=== PATIENT | female | born 1955 | race Caucasian/White ===

== ENCOUNTER 2017-04-19 10:18 | Inpatient (IN) | payer MEDICARE, OTHER ==
[~2017-04-19] VITALS: Ht 157.5 cm; Wt 82.0 kg
[2017-04-19] MEDS ORDERED: normal saline 1000ML IV soln IV ONE (11:25)
[2017-04-19] MEDS ORDERED: vancomycin/NS 1 GM ADD-VANTAGE 250 ML IV ONE (11:25)
[2017-04-19] MEDS ORDERED: piperacillin/tazo 3.375gm/50ml 50 ML IV ONE (11:25)
[2017-04-19 12:14] LABS: ALANINE AMINOTRANSFERASE 24 U/L (12-78); ALBUMIN 3.1 G/DL (3.4-5.0); ALBUMIN/GLOBULIN RATIO 0.7 (1.1-1.5); ALKALINE PHOSPHATASE 105 IU/L (46-116); ANION GAP 5 (8-16); ASPARTATE AMINO TRANSFERASE 15 U/L (10-37); BILIRUBIN,TOTAL 0.4 MG/DL (0.1-1.0); BLOOD UREA NITROGEN 11 MG/DL (7-18); BUN/CREATININE RATIO 13.8 (6.6-38.0); CALCIUM 9.1 MG/DL (8.5-10.1); CHLORIDE 101 MMOL/L (99-107); GLUCOSE 134 MG/DL (70-104); MAGNESIUM 1.7 MG/DL (1.5-2.4); POTASSIUM 3.2 MMOL/L (3.5-5.1); SODIUM 139 MMOL/L (135-145); TOTAL CARBON DIOXIDE 33.2 MMOL/L (24-32); TOTAL PROTEIN 7.5 G/DL (6.4-8.2); eGFR 73 ML/MIN
[2017-04-19 12:24] LABS: D-DIMER 1.07 MG/L FEU (0-0.50); PARTIAL THROMBOPLASTIN TIME 23 SECONDS (22-32); PROTHROMBIN TIME 10.2 SECONDS (9.0-12.0)
[2017-04-19 12:49] LABS: BASOPHILS % (AUTO) 0.2 % (0-1); EOSINOPHILS # (AUTO) 0.2 X10'3 (0-0.9); EOSINOPHILS % (AUTO) 3.1 % (0-6); HEMATOCRIT 41.9 % (35.0-45.0); HEMOGLOBIN 13.7 g/dl (12.0-16.0); LYMPHOCYTES # (AUTO) 0.6 X10'3 (1.1-4.8); LYMPHOCYTES % (AUTO) 8.7 % (21-51); MEAN CORPUSCULAR HEMOGLOBIN 29.3 PG (27.0-31.0); MEAN CORPUSCULAR HGB CONC 32.8 % (33.0-36.5); MEAN CORPUSCULAR VOLUME 89.3 FL (78-98); MEAN PLATELET VOLUME 9.6 FL (7.4-10.4); MONOCYTES # (AUTO) 1.2 X10'3 (0-0.9); NEUTROPHILS # (AUTO) 5.3 X10'3 (1.8-7.7); PLATELET COUNT 184 X10'3 (140-440); RED BLOOD COUNT 4.69 X10'6 (4.20-5.60); RED CELL DISTRIBUTION WIDTH 14.7 % (11.5-14.5); WHITE BLOOD COUNT 7.4 X10'3 (4.5-11.0)
[2017-04-19] MEDS ORDERED: LYR75C PO (13:19)
[2017-04-19] MEDS ORDERED: DONE10TA44 PO (13:19)
[2017-04-19] MEDS ORDERED: VORT5TAB PO (13:19)
[2017-04-19] MEDS ORDERED: FURO40TA4 PO (13:19)
[2017-04-19] MEDS ORDERED: OLAN10TA21 PO (13:19)
[2017-04-19] MEDS ORDERED: LEVO50TA8 PO (13:19)
[2017-04-19] MEDS ORDERED: VENL75CA61 PO (13:19)
[2017-04-19] MEDS ORDERED: BACL20TA PO (13:19)
[2017-04-19] MEDS ORDERED: VENL150C58 PO (13:19)
[2017-04-19] MEDS ORDERED: ondansetron/PF 4mg/2ml inj IV PRN (13:20)
[2017-04-19] MEDS ORDERED: magnesium Cl slow-release 64mg tablet PO PRN (13:20)
[2017-04-19] MEDS ORDERED: mag hydrox/Alum hydrox/simeth 30ml oral suspension PO PRN (13:20)
[2017-04-19] MEDS ORDERED: acetaminophen 325mg tablet PO PRN (13:20)
[2017-04-19] MEDS ORDERED: potassium Cl 40MEQ/NS 500ml 500 ML IV PRN ×2 (13:20)
[2017-04-19] MEDS ORDERED: potassium Cl 20 mEq SR tablet PO PRN (13:20)
[2017-04-19] MEDS ORDERED: bisacodyl 10mg suppository rectal RC PRN (13:20)
[2017-04-19] MEDS ORDERED: magnesium 4gm in 100ml NS 100 ML IV PRN (13:20)
[2017-04-19] MEDS ORDERED: magnesium 2GM in 50ml NS 50 ML IV PRN (13:20)
[2017-04-19] MEDS ORDERED: HYDROcodone/acetaminophen 5mg/325mg tablet PO PRN (13:20)
[2017-04-19] MEDS ORDERED: magnesium hydroxide 30ml (MOM) UD suspension PO PRN (13:20)
[2017-04-19 15:20] VITALS: BP 113/60
[2017-04-19 16:27] VITALS: BP 113/69
[2017-04-19] MEDS: levoFLOXACIN-Levaquin 500mg/D5 100 ML IV SCH (17:13)
[2017-04-19] MEDS: HYDROcodone/acetaminophen 10/325mg tab PO PRN (17:20)
[2017-04-19] MEDS: potassium Cl 20mEq in NS 1,000 ML IV SCH ×2 (17:39→23:17)
[2017-04-19 17:57] LABS: HEMOGLOBIN A1C 5.6 % (4.5-6.2)
[2017-04-19 18:00] VITALS: BP 109/53
[2017-04-19] MEDS: potassium Cl 20 mEq SR tablet PO PRN ×2 (19:05→23:04)
[2017-04-19] MEDS ORDERED: vancomycin/NS 1 GM ADD-VANTAGE 250 ML IV SCH (20:00)
[2017-04-19] MEDS ORDERED: non-formulary drug (Baclofen 1 TAB) PO SCH (20:00)
[2017-04-19] MEDS ORDERED: non-formulary drug (Olanzapine 1 TAB) PO SCH (21:00)
[2017-04-19] MEDS: TECFIDERA 240 MG PO SCH (21:00)
[2017-04-19] MEDS: baclofen 10mg tablet PO SCH (21:04)
[2017-04-19] MEDS ORDERED: donepezil 5mg tablet PO ONE (21:20)
[2017-04-19] MEDS: olanzapine 10mg tablet PO SCH (21:20)
[2017-04-19] MEDS: donepezil 5mg tablet PO SCH (21:21)
[2017-04-19] MEDS: docusate sod 100mg capsule PO SCH (21:22)
[2017-04-19 22:00] VITALS: BP 102/67
[2017-04-20] MEDS ORDERED: vancomycin inj 1,250 MG in normal saline 250ml IV soln 250 ML IV SCH (01:00)
[2017-04-20] MEDS: potassium Cl 20mEq in NS 1,000 ML IV SCH ×2 (04:31→17:30)
[2017-04-20 06:00] VITALS: BP 100/53
[2017-04-20 06:34] LABS: BASOPHILS % (AUTO) 0.5 % (0-1); EOSINOPHILS # (AUTO) 0.3 X10'3 (0-0.9); EOSINOPHILS % (AUTO) 4.2 % (0-6); HEMATOCRIT 38.4 % (35.0-45.0); HEMOGLOBIN 12.7 g/dl (12.0-16.0); LYMPHOCYTES # (AUTO) 0.7 X10'3 (1.1-4.8); LYMPHOCYTES % (AUTO) 12.2 % (21-51); MEAN CORPUSCULAR HGB CONC 33.1 % (33.0-36.5); MEAN CORPUSCULAR VOLUME 90.8 FL (78-98); MEAN PLATELET VOLUME 9.9 FL (7.4-10.4); MONOCYTES # (AUTO) 1.1 X10'3 (0-0.9); MONOCYTES % (AUTO) 17.6 % (2-12); NEUTROPHILS % (AUTO) 65.5 % (42-75); PLATELET COUNT 183 X10'3 (140-440); RED BLOOD COUNT 4.23 X10'6 (4.20-5.60); RED CELL DISTRIBUTION WIDTH 14.9 % (11.5-14.5); WHITE BLOOD COUNT 6.1 X10'3 (4.5-11.0)
[2017-04-20 06:43] LABS: ALBUMIN 2.3 G/DL (3.4-5.0); ANION GAP 6 (8-16); BLOOD UREA NITROGEN 6 MG/DL (7-18); BUN/CREATININE RATIO 8.8 (6.6-38.0); CALCIUM 8.2 MG/DL (8.5-10.1); CHLORIDE 110 MMOL/L (99-107); CREATININE 0.68 MG/DL (0.40-0.90); GLUCOSE 83 MG/DL (70-104); MAGNESIUM 1.6 MG/DL (1.5-2.4); POTASSIUM 3.5 MMOL/L (3.5-5.1); SODIUM 143 MMOL/L (135-145); eGFR 88 ML/MIN
[2017-04-20] MEDS: K and/or MAG REPLACEMENT MC SCH (08:00)
[2017-04-20] MEDS ORDERED: voritioxetine HBr 5mg tablet PO SCH (08:00)
[2017-04-20] MEDS ORDERED: non-formulary drug (Levothyroxine Sodium 1 TAB) PO SCH (08:00)
[2017-04-20] MEDS: venlafaxine XR 75mg capsule (Q24H) PO SCH ×2 (08:10→14:58)
[2017-04-20] MEDS: levoTHYROXINE 25mcg tablet PO SCH (08:10)
[2017-04-20] MEDS: docusate sod 100mg capsule PO SCH ×2 (08:10→20:25)
[2017-04-20] MEDS: baclofen 10mg tablet PO SCH (08:11)
[2017-04-20] MEDS: levoFLOXACIN-Levaquin 500mg/D5 100 ML IV SCH (08:12)
[2017-04-20] MEDS: enoxaparin 40mg/0.4ml syringe SUBCUT SCH (08:13)
[2017-04-20] MEDS: TRINTELLIX 5 MG PO SCH (08:13)
[2017-04-20] MEDS: pregabalin 75mg capsule PO SCH ×2 (08:25→15:27)
[2017-04-20 10:00] VITALS: BP 106/55
[2017-04-20] MEDS ORDERED: pneumococcal 23-VAL P-sac vacc 25 mcg/0.5ml vial IMVAC ONE (10:00)
[2017-04-20] MEDS ORDERED: FLU VACC QS2017-18 36MOS UP/PF 60 MCG/0.5 ML SYRINGE IMVAC ONE (10:00)
[2017-04-20] MEDS ORDERED: vancomycin/NS 1 GM ADD-VANTAGE 250 ML IV SCH (10:00)
[2017-04-20] MEDS: clindamycin 600mg/D5W 50ml 50 ML IV SCH ×2 (14:58→20:23)
[2017-04-20] MEDS: HYDROcodone/acetaminophen 10/325mg tab PO PRN (17:33)
[2017-04-20 18:00] VITALS: BP 126/62
[2017-04-20] MEDS: TECFIDERA 240 MG PO SCH (20:24)
[2017-04-20] MEDS: olanzapine 10mg tablet PO SCH (20:25)
[2017-04-20] MEDS: donepezil 5mg tablet PO SCH (20:26)
[2017-04-20 22:00] VITALS: BP 120/77
[2017-04-21] MEDS ORDERED: VANCOMYCIN LEVEL IV ONE (00:30)
[2017-04-21] MEDS: clindamycin 600mg/D5W 50ml 50 ML IV SCH ×4 (01:23→20:02)
[2017-04-21] MEDS: HYDROcodone/acetaminophen 10/325mg tab PO PRN ×2 (01:36→14:19)
[2017-04-21 05:00] VITALS: BP 116/72
[2017-04-21] MEDS: potassium Cl 20mEq in NS 1,000 ML IV SCH ×2 (05:00→15:17)
[2017-04-21] MEDS ORDERED: LACTOBACILLUS RHAMNOSUS GG 15 billion unit sprinkle caps PO SCH (07:30)
[2017-04-21] MEDS: K and/or MAG REPLACEMENT MC SCH (08:00)
[2017-04-21] MEDS ORDERED: silver sulfadiazine cream 400gm jar TP SCH (08:00)
[2017-04-21 08:13] LABS: ALBUMIN 2.3 G/DL (3.4-5.0); ANION GAP 9 (8-16); BLOOD UREA NITROGEN 6 MG/DL (7-18); BUN/CREATININE RATIO 9.5 (6.6-38.0); CALCIUM 8.2 MG/DL (8.5-10.1); CHLORIDE 111 MMOL/L (99-107); CREATININE 0.63 MG/DL (0.40-0.90); GLUCOSE 80 MG/DL (70-104); MAGNESIUM 1.7 MG/DL (1.5-2.4); POTASSIUM 3.6 MMOL/L (3.5-5.1); SODIUM 144 MMOL/L (135-145); TOTAL CARBON DIOXIDE 24.4 MMOL/L (24-32); eGFR > 90 ML/MIN
[2017-04-21] MEDS: levoTHYROXINE 25mcg tablet PO SCH (09:05)
[2017-04-21] MEDS: docusate sod 100mg capsule PO SCH ×2 (09:05→20:10)
[2017-04-21] MEDS: baclofen 10mg tablet PO SCH (09:06)
[2017-04-21] MEDS: venlafaxine XR 75mg capsule (Q24H) PO SCH ×2 (09:06→15:07)
[2017-04-21] MEDS: TRINTELLIX 5 MG PO SCH (09:06)
[2017-04-21] MEDS: enoxaparin 40mg/0.4ml syringe SUBCUT SCH (09:07)
[2017-04-21] MEDS: pregabalin 75mg capsule PO SCH ×2 (09:10→15:07)
[2017-04-21] MEDS ORDERED: VANCOMYCIN LEVEL IV NR (09:30)
[2017-04-21 10:00] VITALS: BP 113/70
[2017-04-21] MEDS: levoFLOXACIN-Levaquin 500mg/D5 100 ML IV SCH (10:03)
[2017-04-21] MEDS: TECFIDERA 240 MG PO SCH ×2 (10:55→20:10)
[2017-04-21] MEDS ORDERED: CLIN-5 PO (11:24)
[2017-04-21] MEDS ORDERED: LEVO500T2 PO (11:24)
[2017-04-21 18:00] VITALS: BP 108/62
[2017-04-22] MEDS ORDERED: levoFLOXACIN 500mg tablet PO SCH (11:00)
== END 2017-04-21 20:50 | disposition home or self-care (01) | DRG 603 ==
LOC: ER 10:19 → ED HOLD 13:05 → S STAY 16:35 → ORTHO 4S 16:36
PROVIDERS: ADMIT Internal Medicine; ATTEND Internal Medicine
DX: L03.116 Cellulitis of left lower limb (principal); G35 Multiple sclerosis; F32.9 Major depressive disorder, single episode, unspecified; E87.6 Hypokalemia; E03.9 Hypothyroidism, unspecified; E11.9 Type 2 diabetes mellitus without complications; F41.9 Anxiety disorder, unspecified; F17.210 Nicotine dependence, cigarettes, uncomplicated; Z79.899 Other long term (current) drug therapy
CPT/HCPCS: 36415; 71045; 80048; 80053; 83036; 83605; 83735; 84145; 85025; 85379; 85610; 85730; 87040; 87070; 90732; 93005; 93971; 96365; 99285; A6212; A6213; A6449; J1650; J1956; J2405; J2543; J3370; J3490; J7030

== ENCOUNTER 2017-08-01 16:01 | Emergency (ER) | payer MEDICARE, OTHER ==
[~2017-08-01] VITALS: Ht 160 cm; Wt 77.0 kg
[~2017-08-01 16:01] MED LIST: BACL20TA PO; CLIN-5 PO; DONE10TA44 PO; LEVO50TA8 PO; LYR75C PO; OLAN10TA21 PO; VENL150C58 PO; VENL75CA61 PO; VORT5TAB PO
[2017-08-01] MEDS ORDERED: OLAN5TAB5 PO (17:13)
[2017-08-01] MEDS ORDERED: LYR75C PO (17:13)
[2017-08-01] MEDS ORDERED: LORazepam 0.5 MG tablet PO PRN (17:20)
[2017-08-01 17:28] VITALS: BP 128/72
== END 2017-08-01 17:47 | disposition home or self-care (01) ==
LOC: ER 16:01
DX: F41.9 Anxiety disorder, unspecified (principal); F17.200 Nicotine dependence, unspecified, uncomplicated; E11.9 Type 2 diabetes mellitus without complications; Z76.0 Encounter for issue of repeat prescription; Z60.2 Problems related to living alone; Z79.899 Other long term (current) drug therapy
CPT/HCPCS: 99284

== ENCOUNTER 2022-12-25 09:10 | Emergency (ER) | payer MEDICARE ==
[~2022-12-25] VITALS: Ht 157.5 cm; Wt 90.9 kg
[~2022-12-25 09:10] MED LIST changes: -CLIN-5 PO; +CLIN-91 PO
[2022-12-25 09:13] VITALS: TEMP 98
--- NOTE | 2022-12-25 09:25 | NUR ---
RECEIVED REPORT ASSUMING CARE OF PT
[2022-12-25] MEDS ORDERED: LIDOcaine 1% W/epiNEPHrine 1:100,000 20ml vial IJ ONE (12:50)
[2022-12-25] MEDS ORDERED: sulfamethoxazole/trimethoprim DS (800/160mg) tablet PO ONE (13:00)
[2022-12-25] MEDS ORDERED: DOXY-1 PO (13:10)
--- NOTE | 2022-12-25 13:15 | NUR ---
DOROTHY CARGO ETA 1500
[2022-12-25 13:22] VITALS: BP 123/60; PULSE 68; RESP 13; O2SAT 97
== END 2022-12-25 15:51 | disposition home or self-care (01) ==
LOC: ER 09:11
DX: L03.311 Cellulitis of abdominal wall (principal); E11.9 Type 2 diabetes mellitus without complications; F31.9 Bipolar disorder, unspecified; Z79.899 Other long term (current) drug therapy
CPT/HCPCS: 10160; 87070; 99284; A6266; A6449

== ENCOUNTER 2023-01-10 13:07 | Day surgery (SDC) | payer MEDICARE, MEDICAID ==
[~2023-01-10] VITALS: Ht 157.5 cm; Wt 99.0 kg
[2023-01-10] VITALS (16 sets, daily range): BP systolic 112–135; BP diastolic 59–70; PULSE 56–67; RESP 12–17; TEMP 98.3; O2SAT 92–100
[~2023-01-10 13:07] MED LIST changes: +ACET325T58 PO; +BACL20TA2 PO; +BISA10SU60 RC; +CHOL500050 PO; +CYAN10007 SQ; +DAPA10TA PO; +DICL20GE; +DOCU100C40 PO; +DONE10TA19 PO; +FOLI1TAB27 PO; +GLUC1KIT IM; +INSU100I31 SQ; +LEVO150T8 PO; +LORA-268 PO; +MAGN400O6 PO; +MELA3TAB41 PO; +MELO-102 PO; +NOVLG SQ; +PANT40TA54 PO; +PREG100C56 PO; +RIVA20TA PO; +VENL75TA4 PO; +cefazolin 2gm/D5W 100mL 100 ML IV ONE; +famotidine 20mg tablet PO ONE; +fleet enema; +mvi; +ringers solution, lacted 1,000 ML IV SCH
[2023-01-10] MEDS ORDERED: ringers solution, lacted 1,000 ML IV SCH (13:40)
[2023-01-10] MEDS ORDERED: meperidine/PF 25mg/ml syringe IV PRN ×3 (13:40)
[2023-01-10] MEDS ORDERED: morphine 2 MG/ML inj. syringe IV PRN (13:40)
[2023-01-10] MEDS ORDERED: ondansetron/PF 4mg/2ml inj IV PRN (13:40)
[2023-01-10] MEDS ORDERED: proCHLORperazine 10 MG/2 ml inj IV PRN (13:40)
[2023-01-10] MEDS ORDERED: morphine 4 MG/ML inj SYRINge IV PRN (13:40)
--- NOTE | 2023-01-10 14:00 | NUR ---
PT HAS ABD WOUND W/ BANDAID. CDI.
[2023-01-10 14:23] LABS: BASOPHILS # (AUTO) 0.1 X10'3 (0-0.2); BASOPHILS % (AUTO) 0.9 % (0-1); EOSINOPHILS # (AUTO) 0.3 X10'3 (0-0.9); EOSINOPHILS % (AUTO) 4.2 % (0-6); HEMATOCRIT 46.6 % (35.0-45.0); HEMOGLOBIN 14.9 g/dl (12.0-16.0); LYMPHOCYTES # (AUTO) 1.4 X10'3 (1.1-4.8); LYMPHOCYTES % (AUTO) 18.8 % (21-51); MEAN CORPUSCULAR HEMOGLOBIN 26.9 PG (27.0-31.0); MEAN CORPUSCULAR HGB CONC 32.1 g/dL (33.0-36.5); MEAN CORPUSCULAR VOLUME 83.8 FL (78-98); MEAN PLATELET VOLUME 10.2 FL (7.4-10.4); MONOCYTES % (AUTO) 14.1 % (2-12); NEUTROPHILS # (AUTO) 4.6 X10'3 (1.8-7.7); PLATELET COUNT 166 X10'3 (140-440); RED BLOOD COUNT 5.56 X10'6 (4.20-5.60); RED CELL DISTRIBUTION WIDTH 15.5 % (11.5-14.5); WHITE BLOOD COUNT 7.4 X10'3 (4.5-11.0)
[2023-01-10] MEDS ORDERED: bacitracin 15gm ointment TP ONE (14:36)
[2023-01-10 14:37] LABS: ALANINE AMINOTRANSFERASE 17 U/L (12-78); ALBUMIN 3.2 G/DL (3.4-5.0); ALBUMIN/GLOBULIN RATIO 0.8 (1.1-1.5); ALKALINE PHOSPHATASE 143 IU/L (46-116); ANION GAP 4 (8-16); ASPARTATE AMINO TRANSFERASE 25 U/L (10-37); BILIRUBIN,TOTAL 0.5 MG/DL (0.1-1.0); BLOOD UREA NITROGEN 17 MG/DL (7-18); CALCIUM 9.3 MG/DL (8.5-10.1); CHLORIDE 105 MMOL/L (99-107); CREATININE 0.85 MG/DL (0.40-0.90); GLUCOSE 95 MG/DL (70-104); SODIUM 139 MMOL/L (135-145); TOTAL CARBON DIOXIDE 30.3 MMOL/L (24-32); TOTAL PROTEIN 7.3 G/DL (6.4-8.2); eCRCL 51 ML/MIN; eGFR 67 ML/MIN
[2023-01-10 14:39] LABS: POTASSIUM 4.8 MMOL/L (3.5-5.1)
[2023-01-10] MEDS ORDERED: ondansetron/PF 4mg/2ml inj ONE (14:55)
[2023-01-10] MEDS ORDERED: dexamethasone sod phosphate 4mg/ml inj. ONE (14:55)
[2023-01-10] MEDS ORDERED: desflurane 240ml liquid inh. IH ONE (14:55)
[2023-01-10] MEDS ORDERED: sevoflurane 250ml liquid IH ONE (14:55)
[2023-01-10] MEDS ORDERED: fentaNYL/PF 50MCG/1 ML 2ML syringe ONE (14:56)
[2023-01-10] MEDS ORDERED: midazolam 1 mg/ML 2ml injection ONE (14:57)
[2023-01-10] MEDS ORDERED: propofol inj 20 ML IV ONE (15:27)
[2023-01-10] MEDS ORDERED: rocuronium 10mg/ml inj IV ONE (15:27)
[2023-01-10] MEDS ORDERED: LIDOcaine 1%/PF 5ML 10 MG/ML VIAL ONE (15:27)
[2023-01-10] MEDS ORDERED: sugammadex 200mg/2ml injection IV ONE (15:37)
--- NOTE | 2023-01-10 15:56 | NUR ---
Received from OR via [facility] , accompanied by Anesthesiologist GREG and report given by Anesthesiolgist. PATIENT WITH 20G PIV IN LEFT HAND RUNNING LRA T 100. DENIES PAIN AT THIS TIME. PATIENT WITH 10L MASK ON WITH 97% SATURATIONS. ONE ABDOMINAL SITE FOR WOUND VAC THAT IS CDI AND HAS 100% SEAL TO DRESSING. WOUND VAC PULLING WITH NO LEAKS. VSS AT THIS TIME. WILL CONTINUE TO ASSESS AND TREAT PRN PAIN. Addendum: 01/10/23 at 1604 by Amor Villavicencio RN, RN Amended: Links added.
--- NOTE | 2023-01-10 16:10 | NUR ---
PT STATES NO PAIN AT THIS TIME. NO S/S OF DISTRESS
--- NOTE | 2023-01-10 17:04 | NUR ---
PT STATES PAIN IS 8/10 TO ABD - ADMINISTERED DEMEROL. WOUND VAC SEAL GOOD. SETTINGS ARE STILL 125mmHg LOW CONTINUOS SUCTION.
--- NOTE | 2023-01-10 18:36 | NUR ---
PT STABLE FOR D/C PER MD ORDERS. ALL D/C PPWK WAS REV'D WITH PATIENT. ALL QUESTINOS, COMMENTS AND CONCERNS WERE ANSWERED AT THIS TIME. PT WAS ABLE TO TRANSFER INTO W/C BROUGHT BY DOROTHY CARGO WITH ASSISTANCE. SHE STATES THIS IS NORMAL FOR HER. WV GOING AT 125mmHg LOW CONTINOUS SUCTION AND DRESSING TO ABD IS INTACT. NO INDICATION OF LEAK. PT WHEELED DOWN TO DOROTHY CARGO BY DOROTHY CARGO PERSONNEL. ALL PERSONAL BELONGINGS WITH PATIENT.
--- NOTE | 2023-01-10 19:01 | NUR ---
[facility] CALLED TO GET MORE INFORMATION ON D/C WITH WOUND VAC. GAVE MORE INFORMATION OVER THE PHONE. THEY VERBALIZED UNDERSTANDING.
== END 2023-01-10 18:36 ==
LOC: PAS 13:07
PROVIDERS: ATTEND Surgery
DX: T81.89XA Other complications of procedures, not elsewhere classified, initial encounter (principal); Y83.8 Other surgical procedures as the cause of abnormal reaction of the patient, or of later complication, without mention of misadventure at the time of the procedure; Y92.89 Other specified places as the place of occurrence of the external cause
CPT/HCPCS: 36415; 80053; 82948; 85025; 97605; J0690; J1100; J2175; J2250; J2270; J2405; J2704; J3010; J3490; J7030; J7120; Z7506; Z7508; Z7512; 88304; A4615; A4618; A6550; A7000